=== PATIENT | male | born 1940 | race Caucasian/White ===

== ENCOUNTER → 2017-03-04 | Outpatient (CLI) | payer MEDICARE, BC ==
[~2017-03-04] MED LIST: ADVAIR 250-501 EACH IH; ALBUTEROL17 GM INH; AMITRIPTYLINE H25 MG PO; AMLODIPINE-BEN1 EACH PO; BAYER ASPIRIN325 M1 PO; CENTRUM SILVER PO; COMBIVENT U/D3 ML INH; FLOMAX0.4 M1 PO; INDOCIN25 MG/5 ML PO; LEVAQUIN750 MG PO; LOZOL PO; OXYGEN; PREDNISONE PO; SENNA S TABLET1 TAB PO; SIMVASTATIN20 MG PO; THERAPEUTIC FOR1 TA1 PO; ZANTAC150 MG PO; ZITHROMAX PO
--- NOTE | ~2017-03-04 | CT57 ---
[facility] A Service of [facility] RADIOLOGY TEXT RESULTS PATIENT: TRUDY ZIEGLER LOCATION: [facility] : 40 UNIT #: [id number] AGE: [address]: Ashkan Guerrero SEX: M ORDER DR: [id number] [place] [id number] O MR#: [id number] Acc #: [id number] NAME: TRUDY ZIEGLER : 1940 SEX: M STUDY DATE/TIME: 03/04/2017 12:19 UNIT: [facility] ROOM: STUDY DESCRIPTION: CT Chest Wo Cont Attending Physician: Ashkan Guerrero M.D. Referring Physician: Ashkan Guerrero M.D. Ordering Physician: Richard Montana M.D. Primary Care Physician: Richard Montana M.D. MEDICAL IMAGING REPORT This report is preliminary unless electronic signature is present. EXAM CT chest INDICATIONS Pulmonary nodule. Restaging. COPD. TECHNIQUE CT of the chest without contrast. Coronal and sagittal reconstructions were obtained. This CT exam was performed with one or more of the following radiation dose reduction techniques: automatic exposure control, adjustment of mA and/or kV according to patient size, and iterative reconstruction. COMPARISON CT thorax dated 01/06/2017, 12/24/2016, 10/16/2015, 06/30/2015 and 04/27/2015. FINDINGS There is severe background emphysema. An area of peripheral consolidation in the right upper lobe is nearly resolved. This can be followed. There is an ovoid pulmonary nodule in the left upper lobe measuring 7 mm (image 29). This has decreased in size; where it previously measured 1.1 cm. The thoracic aorta is normal in caliber. No pericardial or pleural effusion. Limited images of the upper abdomen were obtained. No acute findings. There are degenerative changes in the thoracic spine. No acute osseous abnormalities. IMPRESSION [facility] A Service of [facility] RADIOLOGY TEXT RESULTS PATIENT: TRUDY ZIEGLER LOCATION: [facility] : 40 UNIT #: [id number] AGE: [address]: Ashkan Guerrero SEX: M ORDER DR: 1. Near resolution of a peripheral area of consolidation in the anterior right upper lobe. 2. 0.7-cm pulmonary nodule in the left upper lobe has decreased in size from the 01/06/2017 exam. This is likely an inflammatory/infectious nodule. Additional followup in 6 months would be recommended. 3. Severe emphysema. Dictated by... Kyler Solomon M.D. THIS IS AN ELECTRONICALLY VERIFIED REPORT Kyler Solomon M.D. at 03/05/2017 7:53 AM JEANA/kanchan TD: 03/04/2017 19:00 JOB #: [id number] MEDICAL IMAGING REPORT Page 1 of 1
== END | disposition home or self-care (01) ==
LOC: SCT 12:08
DX: R91.1 Solitary pulmonary nodule (principal); J43.9 Emphysema, unspecified; J18.1 Lobar pneumonia, unspecified organism
CPT/HCPCS: 71250